=== PATIENT | male | born 1990 | race American Indian/Alaskan Native ===

== ENCOUNTER 2019-05-08 17:15 | Emergency (ER) | payer SELFPAY ==
--- NOTE | 2019-05-08 19:54 | Event Note ---
ED Screening Note ED Screening Note: states that at work he had fish states that he had vomiting after eating it states he had about 6-7 episodes of vomiting no diarrhea no SOB no throat edema no facial edema no abd pain pt brought in by EMS received IVF and zofran and symptoms have resolved I observed pt drinking water able to tolerate PO intake This initial assessment/diagnostic orders/clinical plan/treatment(s) is/are subject to change based on patients health status, clinical progression and re- assessment by fellow clinical providers in the ED. Further treatment and workup at subsequent clinical providers discretion. Patient/guardian urged not to elope from the ED as their condition may be serious if not clinically assessed and managed.
[2019-05-08 19:56] VITALS: BP 110/69
--- NOTE | 2019-05-08 20:00 | Emergency Department Report ---
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 no diarrhea no SOB no throat edema no facial edema no abd pain no fever no hematemesis, no melena, no hematochezia pt brought in by EMS received IVF and zofran and symptoms have resolved I observed pt drinking water able to tolerate PO intake VSS ROS: 10 systems reviewed and are negative on exam: non toxic appearing, no acute distress moist mucus membranes normal oropharynx, no uvular edema, no uvular deviation no angioedema normal appearance of the eyes, EOMI, PERRL regular rate and rhythm, no murmurs, gallops, or rubs breath sounds are clear bilaterally, no w/r/r, no stridor no abd tenderness to palpation, no guarding, no rebound, no rigidity, normal bowel sounds skin is warm, dry, intact most likely consistent with enteritis vs food poisoning pt is tolerating PO intake has had no further episodes of N/V denies any abd pain, fever, hematochezia, hematoemesis medical screening examination performed, there is no threat to life or limb will refer pt to primary care physician given strict return precautions, including but not limited to abdominal pain, fever, unable to tolerate PO intake, blood in the stool or vomit advised pt please increase your fluid intake over the next several days. eat a bland diet. follow up with a primary care doctor in the next 2-3 days. return to the emergency room for any worsening symptoms. - Exam Vital Signs: Vital Signs 05/08/19 17:49 Temperature 97.4 F L Pulse Rate 70 Respiratory 16 Rate Blood Pressure 110/69 O2 Sat by Pulse 99 Oximetry MSE screening note: Focused history and physical exam performed. ED Disposition for MSE Clinical Impression: Nausea and vomiting Qualifiers: Vomiting type: unspecified Vomiting Intractability: non-intractable Qualified Code(s): R11.2 - Nausea with vomiting, unspecified Disposition: MED SCREENING EXAM-LEFT Is pt being admited?: No Does the pt Need Aspirin: No Condition: Stable Instructions: Food Poisoning (ED) Additional Instructions: please increase your fluid intake over the next several days. eat a bland diet. follow up with a primary care doctor in the next 2-3 days. return to the emergency room for any worsening symptoms. Referrals: WILL COMBS MD [Staff Physician] - 2-3 Days [facility] [Outside] - 2-[address] [facility] [Outside] - 2-3 Days Forms: Work/School Release Form(ED) Time of Disposition: 21:03 Print Language: TELUGU
== END 2019-05-08 21:18 | disposition left against medical advice (07) ==
LOC: ED 17:15
DX: R11.2 Nausea with vomiting, unspecified (principal)